=== PATIENT | female | born 1955 | race Two or more races ===

== ENCOUNTER → 2019-11-04 | Day surgery (SDC) | payer MEDICARE ==
[~2019-11-04] VITALS: Ht 170.2 cm; Wt 99.8 kg
[~2019-11-04] MED LIST: ARGIPOW PO; ATEN100T PO; BUPIVACAINE 0.25% INJ 50ML VIAL ONE; DIPH25CA66 PO; DexAMETHasone SOD PHOS 10MG/1ML VIAL INJ ONE; ERGO1CAP6 PO; FERR-7 PO; HYDR-531 PO; LABETALOL HCL 5 MG/ML 4ML SYRINGE IV PRN; LIDOCAINE 1% HCL (LOCAL ANESTH.) INJ 20ML MDV ONE; MAGN250T8 PO; MEPERIDINE HCL (50 MG/ML) 1 ML VIAL ONE; MIDAZOLAM HCL 1MG/1ML-2 ML VIAL IV PRN; MIDAZOLAM HCL 1MG/1ML-2 ML VIAL ONE; MORPHINE SULFATE 4 MG/ML SYR/VIAL IV PRN; ONDANSETRON HCL 4 MG/2 ML VIAL IV PRN; ONDANSETRON HCL 4 MG/2 ML VIAL ONE; PANT40TA2 PO; PHENYLEPHRINE HCL 10 MG/ML VL IV ONE; PROPOFOL 10 MG/ML 20 ML IV ONE; SUCCINYLCHOLINE 20mg/ml 100mg/5ml SYRINGE IV ONE; TEMA15CA91 PO; ceFAZolin 1GM/50ML 50 ML IV ONE; ePHEDrine SULFATE 50 MG/ML AMP IV PRN; fentaNYL CITRATE 100 MCG/2 ML VL ONE
[2019-11-04] MEDS: hydrALAZINE HCL 20 MG/ML VL IV PRN ×3 (16:44→17:05)
[2019-11-04] MEDS: HYDROmorphone HCL 2 MG/ML VL IV PRN ×2 (16:59→17:16)
== END | disposition home or self-care (01) ==
LOC: SUR 10:53
PROVIDERS: ATTEND Orthopaedic Surgery
DX: S52.571A Other intraarticular fracture of lower end of right radius, initial encounter for closed fracture (principal); K44.9 Diaphragmatic hernia without obstruction or gangrene; I10 Essential (primary) hypertension; K21.9 Gastro-esophageal reflux disease without esophagitis; Z68.34 Body mass index [BMI] 34.0-34.9, adult; Z11.59 Encounter for screening for other viral diseases; Z98.51 Tubal ligation status; E66.9 Obesity, unspecified; G89.29 Other chronic pain; X58.XXXA Exposure to other specified factors, initial encounter; Y93.89 Activity, other specified; Y92.89 Other specified places as the place of occurrence of the external cause; Y99.8 Other external cause status
CPT/HCPCS: 25609; 73100; C1713; J0330; J0360; J0690; J1100; J1170; J2001; J2175; J2250; J2370; J2405; J2704; J3010; J3490; U0003; 76000

== ENCOUNTER 2022-06-20 06:18 | Inpatient (IN) | payer MEDICARE ==
[~2022-06-20] VITALS: Ht 170.2 cm; Wt 121.5 kg
[2022-06-20] VITALS (12 sets, daily range): BP systolic 109–155; BP diastolic 57–87
[~2022-06-20 06:18] MED LIST changes: -BUPIVACAINE 0.25% INJ 50ML VIAL ONE; -DexAMETHasone SOD PHOS 10MG/1ML VIAL INJ ONE; +ERGO1CAP12 PO; -ERGO1CAP6 PO; -LABETALOL HCL 5 MG/ML 4ML SYRINGE IV PRN; -LIDOCAINE 1% HCL (LOCAL ANESTH.) INJ 20ML MDV ONE; -MEPERIDINE HCL (50 MG/ML) 1 ML VIAL ONE; -MIDAZOLAM HCL 1MG/1ML-2 ML VIAL IV PRN; -MIDAZOLAM HCL 1MG/1ML-2 ML VIAL ONE; -MORPHINE SULFATE 4 MG/ML SYR/VIAL IV PRN; -ONDANSETRON HCL 4 MG/2 ML VIAL IV PRN; -ONDANSETRON HCL 4 MG/2 ML VIAL ONE; -PHENYLEPHRINE HCL 10 MG/ML VL IV ONE; -PROPOFOL 10 MG/ML 20 ML IV ONE; -SUCCINYLCHOLINE 20mg/ml 100mg/5ml SYRINGE IV ONE; +TEMA15CA2 PO; -TEMA15CA91 PO; -ceFAZolin 1GM/50ML 50 ML IV ONE; -ePHEDrine SULFATE 50 MG/ML AMP IV PRN; -fentaNYL CITRATE 100 MCG/2 ML VL ONE
[2022-06-20] MEDS ORDERED: TRANEXAMIC ACID 20 ML ONE (06:41)
[2022-06-20] MEDS ORDERED: BUPIVACAINE 0.25% INJ 50ML VIAL ONE ×2 (06:42→10:14)
[2022-06-20] MEDS ORDERED: VANCOMYCIN HCL 1000 MG VL ONE (06:43)
[2022-06-20] MEDS ORDERED: ROCURONIUM 10MG/ML 10ML VIAL IV ONE (06:48)
[2022-06-20] MEDS ORDERED: MORPHINE SULF PF 5 MG/10 ML VIAL ONE (06:48)
[2022-06-20] MEDS ORDERED: fentaNYL CITRATE 100 MCG/2 ML VL ONE (06:48)
[2022-06-20] MEDS ORDERED: MIDAZOLAM HCL 2MG/2ML 2ml VIAL (1mg/ml) ONE (06:48)
[2022-06-20] MEDS ORDERED: KETOROLAC TROMETH 30 MG/ML 1ML VIAL ONE (06:49)
[2022-06-20] MEDS ORDERED: EPINEPHrine HCL 1 MG/10 ML SYRG ONE (06:49)
[2022-06-20] MEDS ORDERED: PROPOFOL 10 MG/ML 20 ML IV ONE ×3 (06:49→08:42)
[2022-06-20] MEDS ORDERED: DexAMETHasone SOD PHOS 10MG/1ML VIAL INJ ONE (06:49)
[2022-06-20] MEDS ORDERED: BUPIVACAINE/DEXTROSE MPF 0.75% 2 ML AMP IT ONE (06:49)
[2022-06-20] MEDS ORDERED: SODIUM CHLORIDE LOCK 10 ML ONE (06:49)
[2022-06-20] MEDS ORDERED: TETRACAINE 1% INJ 2 ML VIAL IJ ONE (06:54)
[2022-06-20] MEDS ORDERED: ceFAZolin 1GM/50ML 100 ML IV ONE (06:59)
[2022-06-20] MEDS ORDERED: CELECOXIB 100 MG CAP ONE (06:59)
[2022-06-20] MEDS ORDERED: PREGABALIN CAPSULE 75 MG CAP ONE (06:59)
[2022-06-20] MEDS ORDERED: ACETAMINOPHEN IV 100 ML IV ONE (06:59)
[2022-06-20] MEDS ORDERED: diphenhdrAMINE HCL 50 MG/1 ML VL IV PRN (08:30)
[2022-06-20] MEDS ORDERED: HYDROmorphone HCL 2 MG/ML VL/or syr IV PRN ×3 (08:30→08:45)
[2022-06-20] MEDS ORDERED: NALOXONE HCL 0.4 MG/ML VIAL IV PRN (08:30)
[2022-06-20] MEDS ORDERED: METOCLOPRAMIDE HCL 5MG/ml INJ 2ml VIAL IV PRN (08:30)
[2022-06-20] MEDS ORDERED: MORPHINE SULFATE INJ 2 MG/ml SYRG IV PRN ×2 (08:30→08:45)
[2022-06-20] MEDS ORDERED: ACETAMINOPHEN 325 MG TAB PO PRN (08:45)
[2022-06-20] MEDS ORDERED: CELECOXIB 100 MG CAP PO ONE (08:45)
[2022-06-20] MEDS ORDERED: ceFAZolin 1GM/50ML 50 ML IV SCH (08:45)
[2022-06-20] MEDS ORDERED: diphenhdrAMINE HCL 25 MG CAP PO PRN (08:45)
[2022-06-20] MEDS ORDERED: NITROGLYCERIN 0.4 MG SL TAB SL PRN (08:45)
[2022-06-20] MEDS ORDERED: PREGABALIN CAPSULE 75 MG CAP PO ONE (08:45)
[2022-06-20] MEDS ORDERED: ONDANSETRON HCL 4 MG/2 ML VIAL IV PRN (08:45)
[2022-06-20] MEDS ORDERED: ACETAMINOPHEN IV 1000 MG/100ML (10MG/ML) IV ONE (08:45)
[2022-06-20] MEDS: PANTOPRAZOLE 40 MG TAB PO SCH (10:00)
[2022-06-20] MEDS ORDERED: DexAMETHasone SOD PHOS 4 MG/1ML SDV INJ ONE (10:14)
[2022-06-20] MEDS ORDERED: EPINEPHrine HCL 1 MG/1 ML AMP ONE (10:14)
[2022-06-20] MEDS: LACTATED RINGER'S 1,000 ML IV SCH ×2 (11:15→18:45)
[2022-06-20] MEDS: ceFAZolin 1GM/50ML 50 ML IV SCH ×2 (13:14→20:15)
[2022-06-20] MEDS ORDERED: hydrALAZINE HCL 20 MG/ML VL IV PRN (13:45)
[2022-06-20] MEDS: ENOXAPARIN SOD 40 MG/0.4 ML SYRINGE SC SCH (14:55)
[2022-06-20] MEDS: DOCUSATE SOD 100 MG CAP PO SCH ×2 (14:55→21:37)
[2022-06-20] MEDS: PATIENTS OWN MEDICATION (Magnesium Oxide (Magnesium) 250 MG) PO SCH ×2 (14:55→21:44)
[2022-06-20] MEDS: FERROUS SULFATE 325mg EC TAB PO SCH (14:55)
[2022-06-20] MEDS: SODIUM CHLOR 0.9% PF (SALINE LOCK) 10ML VIAL/SYR IV SCH ×2 (14:55→21:44)
[2022-06-20] MEDS: TEMAZEPAM 15 MG CAP PO SCH (21:37)
[2022-06-20] MEDS ORDERED: ATENOLOL 50 MG TAB PO SCH (22:00)
[2022-06-21] VITALS (14 sets, daily range): BP systolic 108–171; BP diastolic 57–97
[2022-06-21] MEDS: ceFAZolin 1GM/50ML 50 ML IV SCH (01:17)
[2022-06-21] MEDS: LACTATED RINGER'S 1,000 ML IV SCH (04:45)
[2022-06-21 06:55] LABS: Potassium 3.7 mmol/L (3.5-5.1)
[2022-06-21 07:02] LABS: Albumin 3.2 g/dL (3.4-5.0); BUN/Creatinine Ratio 40.7; Bilirubin, Total 0.4 mg/dL (0.2-1.0); Calcium 8.4 mg/dL (8.5-10.1); Total Protein 5.9 g/dL (6.4-8.2)
[2022-06-21] MEDS: SODIUM CHLOR 0.9% PF (SALINE LOCK) 10ML VIAL/SYR IV SCH ×3 (07:14→22:00)
[2022-06-21 07:38] LABS: Basophils # (auto) 0 10 ^3/uL (0-0.2); Basophils % (auto) 0.1 % (0.0-2.0); Eosinophils # (auto) 0 10 ^3/uL (0-0.8); Hematocrit 29.5 % (36.0-46.0); Hemoglobin 10.3 g/dL (12.2-16.2); Lymphocytes # (auto) 0.8 10 ^3/uL (0.4-5.4); Lymphocytes % (auto) 10.1 % (10.0-50.0); Mean Corpuscular Hemoglobin 33.1 pg (28.0-32.0); Mean Corpuscular Volume 94.7 fL (80.0-100.0); Monocytes # (auto) 0.8 10 ^3/uL (0-1.3); Monocytes % (auto) 10.2 % (0.0-12.0); Neutrophils # (auto) 6.6 10 ^3/uL (1.6-8.6); Neutrophils % (auto) 79.6 % (37.0-80.0); Red Blood Cells 3.11 10^6/uL (4.0-5.20); Red Cell Distribution Width 12.7 % (11.8-14.3); White Blood Cell 8.3 10^3/uL (4.4-10.8)
[2022-06-21] MEDS: HYDROcodone-ACET 10/325MG TAB PO PRN ×3 (09:41→20:16)
[2022-06-21] MEDS: FERROUS SULFATE 325mg EC TAB PO SCH (09:41)
[2022-06-21] MEDS: PANTOPRAZOLE 40 MG TAB PO SCH (09:41)
[2022-06-21] MEDS: PATIENTS OWN MEDICATION (Magnesium Oxide (Magnesium) 250 MG) PO SCH ×2 (09:41→22:00)
[2022-06-21] MEDS: DOCUSATE SOD 100 MG CAP PO SCH ×2 (09:41→21:55)
[2022-06-21] MEDS: ENOXAPARIN SOD 40 MG/0.4 ML SYRINGE SC SCH (09:42)
[2022-06-21] MEDS: HYDROmorphone HCL 2 MG/ML VL/or syr IV PRN ×4 (10:57→21:58)
[2022-06-21 16:24] LABS: Urine Bacteria NONE SEEN /hpf (None Seen); Urine Blood Negative /uL (Negative); Urine Mucus FEW (None Seen); Urine Specific Gravity 1.021 (1.001-1.035); Urine WBC 2 /hpf (0 - 5)
[2022-06-21] MEDS: TEMAZEPAM 15 MG CAP PO SCH (21:55)
[2022-06-22] MEDS: HYDROmorphone HCL 2 MG/ML VL/or syr IV PRN ×4 (01:24→16:36)
[2022-06-22] MEDS: HYDROcodone-ACET 10/325MG TAB PO PRN ×3 (03:20→12:49)
[2022-06-22] MEDS ORDERED: dilTIAZem 25 MG/5 ML VIAL IV ONE (03:30)
[2022-06-22] MEDS: SODIUM CHLOR 0.9% PF (SALINE LOCK) 10ML VIAL/SYR IV SCH ×2 (05:01→14:00)
[2022-06-22 06:32] LABS: Hematocrit 29.1 % (36.0-46.0); Hemoglobin 10.2 g/dL (12.2-16.2)
[2022-06-22 09:00] VITALS: BP 157/98
[2022-06-22] MEDS: ENOXAPARIN SOD 40 MG/0.4 ML SYRINGE SC SCH (10:08)
[2022-06-22] MEDS: FERROUS SULFATE 325mg EC TAB PO SCH (10:08)
[2022-06-22] MEDS: DOCUSATE SOD 100 MG CAP PO SCH (10:08)
[2022-06-22] MEDS: PANTOPRAZOLE 40 MG TAB PO SCH (10:08)
[2022-06-22] MEDS: PATIENTS OWN MEDICATION (Magnesium Oxide (Magnesium) 250 MG) PO SCH (10:13)
[2022-06-22] MEDS ORDERED: ATENOLOL 50 MG TAB PO ONE (11:00)
[2022-06-22 14:57] VITALS: BP 150/84
[2022-06-22 16:36] VITALS: BP 150/72
[2022-06-23] MEDS ORDERED: ATENOLOL 50 MG TAB PO SCH (10:00)
== END 2022-06-22 18:00 | DRG 470 ==
LOC: SUR 06:18 → OVERFLOW 08:38 → TELE 10:20 → TELE-WESTW 14:54 → WEST WING 06-21 19:37 → TELE-WESTW 06-22 03:30
PROVIDERS: ADMIT Orthopaedic Surgery Adult Reconstructive Orthopaedic Surgery; ATTEND Internal Medicine
PROC: 8E0YXBZ Computer Assisted Procedure of Lower Extremity (ICD-10-PCS; 2022-06-20)
PROC: 0SRD0J9 Replacement of Left Knee Joint with Synthetic Substitute, Cemented, Open Approach (ICD-10-PCS; principal; 2022-06-20 07:15)
DX: M17.12 Unilateral primary osteoarthritis, left knee (principal); Z68.41 Body mass index [BMI] 40.0-44.9, adult; I10 Essential (primary) hypertension; Z20.822 Contact with and (suspected) exposure to COVID-19; K21.9 Gastro-esophageal reflux disease without esophagitis; E66.01 Morbid (severe) obesity due to excess calories; Z71.3 Dietary counseling and surveillance
CPT/HCPCS: 36415; 73562; 80053; 81001; 85014; 85018; 85025; 86850; 86900; 86901; 87426; 93005; 97110; 97116; 97163; 97530; G0378; J0131; J0171; J0690; J1100; J1885; J2250; J2405; J2704; J3490

== ENCOUNTER 2022-06-24 16:45 | Inpatient (IN) | payer MEDICARE ==
[~2022-06-24] VITALS: Ht 167.6 cm; Wt 111.3 kg
[2022-06-24] MEDS ORDERED: HYDROmorphone HCL 2 MG/ML VL/or syr IV ONE ×2 (21:00→22:00)
[2022-06-24 22:25] LABS: Basophils # (auto) 0 10 ^3/uL (0-0.2); Basophils % (auto) 0.3 % (0.0-2.0); Eosinophils # (auto) 0.3 10 ^3/uL (0-0.8); Eosinophils % (auto) 4.1 % (0.0-7.0); Hematocrit 29.7 % (36.0-46.0); Hemoglobin 10.2 g/dL (12.2-16.2); Lymphocytes # (auto) 1.1 10 ^3/uL (0.4-5.4); Lymphocytes % (auto) 15.7 % (10.0-50.0); Mean Corpuscular Hemoglobin 32.5 pg (28.0-32.0); Mean Corpuscular Hgb Conc. 34.4 g/dL (32.0-36.0); Mean Corpuscular Volume 94.5 fL (80.0-100.0); Monocytes # (auto) 0.6 10 ^3/uL (0-1.3); Monocytes % (auto) 9.5 % (0.0-12.0); Neutrophils # (auto) 4.8 10 ^3/uL (1.6-8.6); Neutrophils % (auto) 70.4 % (37.0-80.0); Nucleated Red Blood Cells % 0.1 %; Red Blood Cells 3.15 10^6/uL (4.0-5.20); Red Cell Distribution Width 12.3 % (11.8-14.3); White Blood Cell 6.8 10^3/uL (4.4-10.8)
[2022-06-24 22:47] LABS: Albumin 3.1 g/dL (3.4-5.0); Calcium 8.8 mg/dL (8.5-10.1); Potassium 3.6 mmol/L (3.5-5.1)
[2022-06-24 22:50] LABS: BUN/Creatinine Ratio 36.5; Bilirubin, Total 0.7 mg/dL (0.2-1.0); Total Protein 6.1 g/dL (6.4-8.2)
[2022-06-25] MEDS ORDERED: NITROGLYCERIN 0.4 MG SL TAB SL PRN (01:45)
[2022-06-25] MEDS ORDERED: HYDROcodone-ACET 5/325MG TAB PO PRN (01:45)
[2022-06-25] MEDS ORDERED: MORPHINE SULFATE INJ 2 MG/ml SYRG IV PRN (01:45)
[2022-06-25] MEDS: SODIUM CHLORIDE 0.9% 1,000 ML IV SCH ×2 (02:26→19:30)
[2022-06-25] MEDS: MORPHINE SULFATE INJ 2 MG/ml SYRG IV PRN ×2 (02:27→07:23)
[2022-06-25] MEDS: hydrALAZINE HCL 20 MG/ML VL IV PRN (07:24)
[2022-06-25] MEDS ORDERED: MORPHINE SULFATE 4 MG/ML SYR/VIAL IV ONE (09:30)
[2022-06-25] MEDS: PANTOPRAZOLE 40 MG/10 ML VIAL INJ IV SCH (10:07)
[2022-06-25] MEDS: ENOXAPARIN SOD 40 MG/0.4 ML SYRINGE SC SCH (10:08)
[2022-06-25] MEDS: ATENOLOL 50 MG TAB PO SCH (10:10)
[2022-06-25] MEDS: MORPHINE SULFATE 4 MG/ML SYR/VIAL IV PRN ×2 (14:13→22:26)
[2022-06-25] MEDS: HYDROcodone-ACET 5/325MG TAB PO PRN (21:12)
[2022-06-25] MEDS: ONDANSETRON HCL 4 MG/2 ML VIAL IV PRN (22:25)
[2022-06-26] MEDS: TEMAZEPAM 15 MG CAP PO PRN ×2 (01:39→21:55)
[2022-06-26] MEDS: ACETAMINOPHEN 325 MG TAB PO PRN (01:39)
[2022-06-26 06:06] LABS: Basophils # (auto) 0 10 ^3/uL (0-0.2); Basophils % (auto) 0.4 % (0.0-2.0); Eosinophils # (auto) 0.2 10 ^3/uL (0-0.8); Eosinophils % (auto) 3.6 % (0.0-7.0); Hematocrit 29.9 % (36.0-46.0); Hemoglobin 10.3 g/dL (12.2-16.2); Lymphocytes % (auto) 16.7 % (10.0-50.0); Mean Corpuscular Hemoglobin 32.4 pg (28.0-32.0); Mean Corpuscular Hgb Conc. 34.6 g/dL (32.0-36.0); Mean Corpuscular Volume 93.6 fL (80.0-100.0); Monocytes # (auto) 0.6 10 ^3/uL (0-1.3); Monocytes % (auto) 10.3 % (0.0-12.0); Neutrophils # (auto) 3.9 10 ^3/uL (1.6-8.6); Nucleated Red Blood Cells % 0.2 %; Red Blood Cells 3.19 10^6/uL (4.0-5.20); Red Cell Distribution Width 12.4 % (11.8-14.3); White Blood Cell 5.7 10^3/uL (4.4-10.8)
[2022-06-26 06:50] LABS: Albumin 2.9 g/dL (3.4-5.0); BUN/Creatinine Ratio 34.7; Calcium 8.7 mg/dL (8.5-10.1); Potassium 3.6 mmol/L (3.5-5.1)
[2022-06-26 06:52] LABS: Bilirubin, Total 0.8 mg/dL (0.2-1.0); Total Protein 6.1 g/dL (6.4-8.2)
[2022-06-26] MEDS: ENOXAPARIN SOD 40 MG/0.4 ML SYRINGE SC SCH (09:52)
[2022-06-26] MEDS: ONDANSETRON HCL 4 MG/2 ML VIAL IV PRN (09:52)
[2022-06-26] MEDS: PANTOPRAZOLE 40 MG/10 ML VIAL INJ IV SCH (09:52)
[2022-06-26] MEDS: ATENOLOL 50 MG TAB PO SCH (09:53)
[2022-06-26] MEDS: MORPHINE SULFATE 4 MG/ML SYR/VIAL IV PRN (09:53)
[2022-06-26] MEDS: SODIUM CHLORIDE 0.9% 1,000 ML IV SCH (11:03)
[2022-06-26 17:17] VITALS: BP 133/74
[2022-06-26] MEDS ORDERED: GABA300C10 PO (17:35)
[2022-06-26] MEDS: HYDROcodone-ACET 5/325MG TAB PO PRN ×2 (17:43→23:00)
[2022-06-26 20:00] VITALS: BP 123/78
[2022-06-26] MEDS: hydrALAZINE HCL 20 MG/ML VL IV PRN (21:54)
[2022-06-26] MEDS: MORPHINE SULFATE INJ 2 MG/ml SYRG IV PRN (21:55)
[2022-06-26] MEDS: DOCUSATE SOD 100 MG CAP PO PRN (21:55)
[2022-06-26 22:00] VITALS: BP 156/85
[2022-06-27] VITALS (7 sets, daily range): BP systolic 119–150; BP diastolic 73–84
[2022-06-27] MEDS: MORPHINE SULFATE 4 MG/ML SYR/VIAL IV PRN (02:10)
[2022-06-27] MEDS: HYDROcodone-ACET 5/325MG TAB PO PRN ×3 (04:44→22:39)
[2022-06-27 06:23] LABS: Basophils # (auto) 0 10 ^3/uL (0-0.2); Basophils % (auto) 0.4 % (0.0-2.0); Eosinophils # (auto) 0.2 10 ^3/uL (0-0.8); Eosinophils % (auto) 2.7 % (0.0-7.0); Hematocrit 31.6 % (36.0-46.0); Lymphocytes # (auto) 1.3 10 ^3/uL (0.4-5.4); Lymphocytes % (auto) 16.7 % (10.0-50.0); Mean Corpuscular Hemoglobin 32.5 pg (28.0-32.0); Mean Corpuscular Volume 92.8 fL (80.0-100.0); Monocytes # (auto) 0.7 10 ^3/uL (0-1.3); Monocytes % (auto) 8.9 % (0.0-12.0); Neutrophils # (auto) 5.7 10 ^3/uL (1.6-8.6); Neutrophils % (auto) 71.3 % (37.0-80.0); Nucleated Red Blood Cells % 0.1 %; Red Cell Distribution Width 12.5 % (11.8-14.3); White Blood Cell 7.9 10^3/uL (4.4-10.8)
[2022-06-27] MEDS ORDERED: KETOROLAC TROMETH 30 MG/ML 1ML VIAL IV PRN (06:30)
[2022-06-27 06:35] LABS: Albumin 3.3 g/dL (3.4-5.0); BUN/Creatinine Ratio 35.3; Calcium 8.9 mg/dL (8.5-10.1); Potassium 3.5 mmol/L (3.5-5.1)
[2022-06-27 06:37] LABS: Bilirubin, Total 0.8 mg/dL (0.2-1.0); Total Protein 6.6 g/dL (6.4-8.2)
[2022-06-27] MEDS: ATENOLOL 50 MG TAB PO SCH (10:02)
[2022-06-27] MEDS: PANTOPRAZOLE 40 MG/10 ML VIAL INJ IV SCH (10:02)
[2022-06-27] MEDS: ENOXAPARIN SOD 40 MG/0.4 ML SYRINGE SC SCH (10:02)
[2022-06-27] MEDS ORDERED: ceFAZolin 1GM/50ML 50 ML IV ONE (11:15)
[2022-06-27 15:12] LABS: Urine Bacteria NONE SEEN /hpf (None Seen); Urine Blood Negative /uL (Negative); Urine Mucus FEW (None Seen); Urine Specific Gravity 1.017 (1.001-1.035); Urine WBC 1 /hpf (0 - 5)
[2022-06-27] MEDS: ceFAZolin 1GM/50ML 50 ML IV SCH (18:17)
[2022-06-27] MEDS: TEMAZEPAM 15 MG CAP PO PRN (22:38)
[2022-06-27] MEDS: DOCUSATE SOD 100 MG CAP PO PRN (22:39)
[2022-06-27] MEDS ORDERED: BACLOFEN 10 MG TAB PO ONE (23:30)
[2022-06-28] MEDS: ceFAZolin 1GM/50ML 50 ML IV SCH ×2 (02:21→10:45)
[2022-06-28] MEDS: MORPHINE SULFATE INJ 2 MG/ml SYRG IV PRN ×2 (02:25→08:33)
[2022-06-28] MEDS: HYDROcodone-ACET 5/325MG TAB PO PRN ×3 (04:53→16:22)
[2022-06-28 05:00] VITALS: BP 160/82
[2022-06-28 05:30] VITALS: BP 150/78
[2022-06-28 05:32] LABS: Basophils # (auto) 0 10 ^3/uL (0-0.2); Basophils % (auto) 0.3 % (0.0-2.0); Eosinophils # (auto) 0.1 10 ^3/uL (0-0.8); Eosinophils % (auto) 1.6 % (0.0-7.0); Hematocrit 30.4 % (36.0-46.0); Hemoglobin 10.7 g/dL (12.2-16.2); Lymphocytes # (auto) 0.9 10 ^3/uL (0.4-5.4); Lymphocytes % (auto) 11.3 % (10.0-50.0); Mean Corpuscular Hemoglobin 32.2 pg (28.0-32.0); Mean Corpuscular Volume 91.9 fL (80.0-100.0); Monocytes # (auto) 0.7 10 ^3/uL (0-1.3); Monocytes % (auto) 9.5 % (0.0-12.0); Neutrophils # (auto) 5.9 10 ^3/uL (1.6-8.6); Neutrophils % (auto) 77.3 % (37.0-80.0); Red Blood Cells 3.31 10^6/uL (4.0-5.20); Red Cell Distribution Width 12.5 % (11.8-14.3); White Blood Cell 7.7 10^3/uL (4.4-10.8)
[2022-06-28] MEDS: ATENOLOL 50 MG TAB PO SCH (08:32)
[2022-06-28] MEDS: ENOXAPARIN SOD 40 MG/0.4 ML SYRINGE SC SCH (08:34)
[2022-06-28 09:00] VITALS: BP 131/80
[2022-06-28] MEDS ORDERED: PANTOPRAZOLE 40 MG TAB PO SCH (10:00)
[2022-06-28 13:14] VITALS: BP 143/94
[2022-06-28] MEDS: ACETAMINOPHEN 325 MG TAB PO PRN (13:34)
[2022-06-28 16:40] VITALS: BP 148/81
== END 2022-06-28 17:09 | DRG 603 ==
LOC: EDBD 16:45 → ER 16:45 → OVERFLOW 06-25 01:45 → CENTRAL 06-26 16:38
PROVIDERS: ADMIT Nurse Practitioner Family; ATTEND Internal Medicine
DX: L03.116 Cellulitis of left lower limb (principal); D84.9 Immunodeficiency, unspecified; E88.09 Other disorders of plasma-protein metabolism, not elsewhere classified; I10 Essential (primary) hypertension; E66.01 Morbid (severe) obesity due to excess calories; Z96.652 Presence of left artificial knee joint; D64.9 Anemia, unspecified; M25.462 Effusion, left knee; Z20.822 Contact with and (suspected) exposure to COVID-19; Z80.3 Family history of malignant neoplasm of breast; Z83.3 Family history of diabetes mellitus; Z79.899 Other long term (current) drug therapy; Z88.8 Allergy status to other drugs, medicaments and biological substances; Z68.39 Body mass index [BMI] 39.0-39.9, adult
CPT/HCPCS: 36415; 80053; 81001; 85025; 87081; 87426; 93971; 96361; 96372; 96374; 96375; 96376; 97110; 97163; C9113; G0378; J0690; J2405